=== PATIENT | male | born 1965 | race African-American/Black ===

== ENCOUNTER → 2018-11-12 | Emergency (ER) | payer OTHER ==
[~2018-11-12] VITALS: Ht 182.9 cm; Wt 154.2 kg
[~2018-11-12] MED LIST: AMLODIPINE BESY10 MG; CARVEDILOL25 MG; DIPHENOXYLATE-1 EACH; VALSARTAN320 MG
== END | disposition left against medical advice (07) ==
LOC: ER 13:37
DX: Z53.20 Procedure and treatment not carried out because of patient's decision for unspecified reasons (principal)